=== PATIENT | male | born 1980 | race Caucasian/White ===

== ENCOUNTER 2022-08-06 20:16 | Emergency (ER) | payer OTHER, SELFPAY ==
[2022-08-06 20:51] VITALS: PULSE 77; RESP 18; TEMP 36.3; O2SAT 98
--- NOTE | 2022-08-06 23:59 | ED.UPPEXIN ---
HPI - Extremity Injury (Upper) General Chief Complaint: Extremity Injury, Upper Stated Complaint: RIGHT THUMB PAIN Time Seen by Provider: 08/06/22 23:34 History of Present Illness HPI narrative: Patient is a 41-year-old male presenting with abdominal pain. Patient states that earlier this week he noticed a hangnail on his right thumb so he bit it off. He then noticed some loose skin that he cut off with a razor. Since that time he has had a scab near that thumbnail. States that it continues to be very painful. He was seen in urgent care yesterday and prescribed Bactrim but his pain has continued. Denies white drainage, spreading erythema, fevers, decreased range of motion. Denies further complaints. Related Data Allergies Allergy/AdvReac Type Severity Reaction Status Date / Time No Known Allergies Allergy Unverified 02/09/19 00:40 Review of Systems Review of Systems: All systems reviewed & are unremarkable except as noted in HPI and below Exam Narrative: GENERAL: Well-appearing, well-nourished, and in no acute distress. HEAD: Normocephalic, atraumatic. EYES: PERRLA and EOMI. ENT: Nares clear, no rhinorrhea or epistaxis. Mucous membranes moist. NECK: Supple. CHEST: Clear to auscultation. No respiratory distress. HEART: Regular rate and rhythm. No murmur heard. Normal peripheral pulses. ABDOMEN: Soft, nontender, nondistended, normal active bowel sounds. EXTREMITIES: Normal range of motion. No edema. SKIN: scab on lateral aspect of right thumb nail without evidence of purulence, no paronychia, no involvement of thumb pad, no spreading erythema, brisk cap refill. NEURO: No focal deficits. Alert and oriented x3. PSYCH: Normal mood and affect. Course Course Emergency Course: Patient is a 41-year-old male presenting with thumb pain. Vitals are within normal limits. Exam is remarkable for the above. There is no evidence of paronychia or felon. There is no evidence of spreading infection. No fluctuance or purulence noted. Patient is already on Bactrim, will add Keflex for additional coverage. Recommended Tylenol and ibuprofen [id number]. Advised that he continue to apply warm compresses. Strict return precautions were given. Advised to follow-up with primary care. Discharged in stable condition. Vital Signs Vital signs: Vital Signs Temperature 97.3 F L 08/06/22 20:51 Pulse Rate 77 08/06/22 20:51 Respiratory Rate 18 08/06/22 20:51 Pulse Oximetry 98 08/06/22 20:51 Oxygen Delivery Room Air 08/06/22 20:51 Temperature 97.3 F L 08/07/22 00:46 Pulse Rate 77 08/07/22 00:46 Respiratory Rate 18 08/07/22 00:46 Pulse Oximetry 98 08/07/22 00:46 Oxygen Delivery Room Air 08/06/22 20:51 Critical Care Time Critical Care Time Critical Care Time: No Discharge Plan Discharge Clinical Impression: Abrasion of thumb, infected Patient Disposition: Home, Self-Care Condition: Stable Additional Instructions: Please complete the antibiotics as prescribed. Please continue applying warm compresses. Please use Tylenol and ibuprofen for pain control. Please follow-up with primary care. If your symptoms continue to worsen, you develop a fever or other concerning symptoms arise, please return to the ER. Prescriptions: New cephalexin 500 mg capsule 500 mg PO Q6H 7 Days Qty: 28 0RF Follow-up/Referrals: Fazal Arzate MD [Physician] - PHYSICIAN,HEARINGS REPORTER [Primary Care Provider] -
[2022-08-07 00:46] VITALS: PULSE 77; RESP 18; TEMP 36.3; O2SAT 98
== END 2022-08-07 00:52 | disposition home or self-care (01) ==
PROVIDERS: Emergency Provider Emergency Medicine
DX: S60.311A Abrasion of right thumb, initial encounter (principal); L08.9 Local infection of the skin and subcutaneous tissue, unspecified; X58.XXXA Exposure to other specified factors, initial encounter
CPT/HCPCS: 99283